=== PATIENT | male | born 1945 | race Hispanic/Latino ===

== ENCOUNTER 2017-11-05 00:17 | Inpatient (IN) | payer MEDICARE ==
[2017-11-05 00:33] LABS: Base Excess-Venous -2.3 mmol/L (-30.0-30.0); Bicarbonate (HCO3v) 28.5 mmol/L (1.0-85.0); CO2 Tension (PvCO2) 81.4 mmHg (41.0-51.0); Calcium, Ionized 1.45 mmol/L (1.12-1.32); Hemoglobin - Calc 12.8 g/dL (12.0-18.0); Lactate 8.02 mmol/L (0.50-2.20); O2 Tension (PvO2) 28.6 mmHg (35.0-45.0); Potassium 6.4 mmol/L (3.4-4.7); pH (Venous) 7.152 (7.35-7.45); vO2 Saturation-calc 36.1 % (0.0-100.0)
[2017-11-05] MEDS ORDERED: Sodium Bicarb 50 MEQ/50 ML Abboject 8.4% SYRINGE ONE (01:00)
[2017-11-05] MEDS ORDERED: EPINEPHrine 1 MG/10 ML Abboject SYRINGE ONE (01:00)
[2017-11-05] MEDS ORDERED: DOPamine/D5W 400 mg/250 ml PREMIX ONE (01:00)
[2017-11-05 01:04] LABS: #Basophils 0.1 thou/uL (0.0-0.2); #Monocytes 0.8 thou/uL (0.11-0.59); #Neutrophils 8.2 thou/uL (1.40-6.50); %Basophils 0.5 % (0.0-1.0); %Eosinophils 0.2 % (0.0-10.0); %Lymphocytes 30.5 % (21.0-51.0); %Neutrophils 62.8 % (42.0-75.0); Hemoglobin 12.2 g/dL (14.0-18.0); Mean Platelet Volume 7.7 fL (7.4-10.4); Platelet Count 219 thou/uL (130-400); RBC Distribution Width 12.3 % (11.5-14.5); Red Blood Cell (RBC) Count 3.69 mill/uL (4.70-6.10); White Blood Cell (WBC) Count 13.1 thou/uL (4.8-10.8)
[2017-11-05 01:10] LABS: INR-International Normal Ratio 1.3; Prothrombin Time 16.5 SEC (12.0-14.7)
[2017-11-05 01:23] LABS: ALT (SGPT) 19 U/L (8-55); AST (SGOT) 43 U/L (5-34); Albumin 2.8 g/dL (3.4-4.8); Alkaline Phosphatase 85 U/L (40-150); Anion Gap 30 mmol/L (10-20); BUN (Urea Nitrogen) 44 mg/dL (8.4-25.7); Bilirubin, Total 0.9 mg/dL (0.2-1.2); CK (CPK) 54 U/L (30-200); Calc. Creatinine Clearance 0 mL/min (70-130); Carbon Dioxide 19 mmol/L (23-31); Chloride 101 mmol/L (98-107); Estimated GFR-MDRD 57; Globulin 3.8 g/dL (2.4-3.5); Glucose 153 mg/dL (83-110); Magnesium 2.5 mg/dL (1.6-2.6); Protein, Total 6.6 g/dL (5.8-8.1); Sodium 143 mmol/L (136-145)
[2017-11-05 01:26] LABS: CKMB 1.5 ng/mL (0-6.6); Troponin I 0.012 ng/mL (< 0.028)
[2017-11-05 01:27] LABS: Calcium 13.1 mg/dL (7.8-10.44); Potassium 6.8 mmol/L (3.5-5.1)
[2017-11-05] MEDS ORDERED: Amiodarone In Dextrose 200 ML IVPB SCH (01:30)
[2017-11-05] MEDS ORDERED: Vancomycin HCl 500 MG in Sodium Chloride 0.9% 100 ML IVPB SCH (01:30)
[2017-11-05] MEDS ORDERED: Piperacillin/Tazobactam 4.5 GM in Sodium Chloride 0.9% 100 ML IVPB SCH (01:30)
[2017-11-05] MEDS ORDERED: Metoclopramide HCl 10 MG/2 ML VIAL ONE (01:58)
[2017-11-05] MEDS ORDERED: diphenhydrAMINE 50 MG/ML VIAL ONE (01:58)
[2017-11-05] MEDS ORDERED: Ketorolac Tromethamine 30 MG/ML VIAL ONE (01:58)
[2017-11-05] MEDS ORDERED: Propofol 1,000 MG/100 ML VIAL IV PRN ×2 (02:42→03:04)
[2017-11-05] MEDS ORDERED: fentaNYL Citrate/PF 2,000 MCG in Sodium Chloride 0.9% 60 ML IV SCH ×2 (02:42→03:04)
[2017-11-05] MEDS ORDERED: Lorazepam 2 MG/ML VIAL SLOW IVP PRN ×2 (02:42→03:04)
[2017-11-05] MEDS ORDERED: Fentanyl BOLUS 250 ML IVPB PRN ×2 (02:42→03:04)
[2017-11-05] MEDS ORDERED: Morphine 2 MG/ML SYRINGE SLOW IVP PRN ×2 (02:42→03:04)
[2017-11-05] MEDS ORDERED: DISCONTINUE PREVIOUS NARCOTIC PAIN MEDICATIONS AND BENZODIAZEPINES FS SCH ×2 (02:42→03:04)
[2017-11-05] MEDS ORDERED: DOPamine 400 MG/D5W 250 ML 250 ML IVPB SCH (02:45)
[2017-11-05] MEDS ORDERED: Vecuronium 10 MG VIAL IV PRN (02:45)
[2017-11-05] MEDS ORDERED: ALL FLUIDS SHOULD BE DEXTROSE FREE IF POSSIBLE FS SCH (02:45)
[2017-11-05] MEDS ORDERED: DO NOT USE PRE-EXISTING LYTE PROTOCOL FS SCH (02:45)
[2017-11-05] MEDS ORDERED: Ventilator Sedation Protocol 1 EACH FS SCH (02:58)
[2017-11-05] MEDS ORDERED: Sodium Chloride 0.9% 1,000 ML IV SCH (03:00)
[2017-11-05] MEDS ORDERED: Norepinephrine 8 MG/0.9% NS 250 ML IVPB SCH (03:00)
[2017-11-05] MEDS ORDERED: Vasopressin 40 UNIT, Admixture Fee 1 EACH in Sodium Chloride 0.9% 100 ML IV SCH (03:00)
[2017-11-05 03:02] LABS: Actual Bicarbonate (HCO3a) 22.7 mEq/L (22-26); Base Excess (BEa) -5.8 mEq/L (0 (+/-) 2.5); CO2 Tension 59.2 mmHg (35.0-45.0); Hematocrit-ABG 32.2 % (42.0-52.0); Hemoglobin (Hb) 11.5 g/dL (14.0-18.0); O2 Tension (PaO2) 315.4 mmHg (80.0-100.0)
[2017-11-05 03:03] LABS: Analyzer IN Cardio ER; Calcium, Ionized 1.4 mmol/L (1.12-1.30); Puncture Site LFA
[2017-11-05 03:24] VITALS: BMI 16.5
[2017-11-05 03:57] LABS: INR-International Normal Ratio 1.6; Prothrombin Time 19.7 SEC (12.0-14.7)
[2017-11-05 04:11] LABS: Lactic Acid 10.5 mmol/L (0.5-2.2)
[2017-11-05 04:13] LABS: ALT (SGPT) 114 U/L (8-55); AST (SGOT) 263 U/L (5-34); Albumin 2.3 g/dL (3.4-4.8); Alkaline Phosphatase 79 U/L (40-150); Anion Gap 23 mmol/L (10-20); BUN (Urea Nitrogen) 39 mg/dL (8.4-25.7); Bilirubin, Total 1.3 mg/dL (0.2-1.2); Calc. Creatinine Clearance 38 mL/min (70-130); Calcium 9.1 mg/dL (7.8-10.44); Carbon Dioxide 18 mmol/L (23-31); Chloride 110 mmol/L (98-107); Estimated GFR-MDRD 64; Glucose 196 mg/dL (83-110); Magnesium 1.7 mg/dL (1.6-2.6); Phosphorus 6.4 mg/dL (2.3-4.7); Protein, Total 5.3 g/dL (5.8-8.1); Sodium 147 mmol/L (136-145)
[2017-11-05 04:17] LABS: Troponin I 0.053 ng/mL (< 0.028)
[2017-11-05 04:20] LABS: Band 27 % (5-11); Burr Cells SLIGHT = 2-5 cells (100X) (0-1/hpf); Hemoglobin 11.5 g/dL (14.0-18.0); Lymphocytes 8 % (21-51); MDiff Complete? YES; Mean Corpuscular HGB CONC 31.9 g/dL (32.0-36.0); Mean Corpuscular Hemoglobin 32.5 pg (27.0-31.0); Metamyelocyte 4 % (0-0); Monocytes 1 % (0-10); Neutrophil 60 % (42-75); PLT Morphology Comment Appears Adequate; Platelet Count 176 thou/uL (130-400); RBC Distribution Width 12.4 % (11.5-14.5); Red Blood Cell (RBC) Count 3.53 mill/uL (4.70-6.10); White Blood Cell (WBC) Count 6.3 thou/uL (4.8-10.8)
--- NOTE | 2017-11-05 05:54 | PDOC.EVN ---
Event Note - Event Note Event Note: Spoke to patient's and sister at 05:35 on 11/05. I have informed them of patient's status and very poor prognosis. They desire to make patient DNR at this time. They understand his poor prognosis and have decided collectively that they do not want him to suffer any longer. They also desire to withdrawal care. Efforts will be made to withdrawal care at families request.
[2017-11-05 07:25] LABS: INR-International Normal Ratio 1.8; PTT 43.2 SEC (22.9-36.1); Prothrombin Time 21.4 SEC (12.0-14.7)
[2017-11-05 07:38] LABS: Anion Gap 26 mmol/L (10-20); BUN (Urea Nitrogen) 44 mg/dL (8.4-25.7); Calc. Creatinine Clearance 30 mL/min (70-130); Calcium 9.6 mg/dL (7.8-10.44); Carbon Dioxide 16 mmol/L (23-31); Chloride 109 mmol/L (98-107); Estimated GFR-MDRD 48; Glucose 91 mg/dL (83-110); Magnesium 1.9 mg/dL (1.6-2.6); Phosphorus 7.5 mg/dL (2.3-4.7); Potassium 5.5 mmol/L (3.5-5.1); Sodium 145 mmol/L (136-145)
[2017-11-05 07:44] LABS: Band 48 % (5-11); Hemoglobin 12.4 g/dL (14.0-18.0); Lymphocytes 8 % (21-51); MDiff Complete? YES; Mean Corpuscular HGB CONC 31.9 g/dL (32.0-36.0); Mean Corpuscular Hemoglobin 32.9 pg (27.0-31.0); Mean Platelet Volume 7.1 fL (7.4-10.4); Metamyelocyte 1 % (0-0); Monocytes 5 % (0-10); Neutrophil 38 % (42-75); Platelet Count 232 thou/uL (130-400); RBC Distribution Width 12.5 % (11.5-14.5); Red Blood Cell (RBC) Count 3.76 mill/uL (4.70-6.10)
[2017-11-05 07:53] LABS: CKMB 40.4 ng/mL (0-6.6); Lactic Acid Greater than 13.4 mmol/L (0.5-2.2)
[2017-11-05 08:09] LABS: Actual Bicarbonate (HCO3a) 17.9 mEq/L (22-26); Base Excess (BEa) -11.3 mEq/L (0 (+/-) 2.5); CO2 Tension 58.1 mmHg (35.0-45.0); O2 Tension (PaO2) 61.3 mmHg (80.0-100.0); pH, Arterial 7.11 (7.35-7.45)
[2017-11-05 08:10] LABS: ALV-art Gradient 222.575 (0-20); Hematocrit-ABG 26.5 % (42.0-52.0); Hemoglobin (Hb) 9.3 g/dL (14.0-18.0); Puncture Site LRA
[2017-11-05] MEDS: Norepinephrine 8 MG/0.9% NS 250 ML IVPB SCH ×3 (08:12→23:42)
[2017-11-05] MEDS: Sodium Bicarbonate 150 MEQ, Admixture Fee 1 EACH in Dextrose 5% in Water 1,000 ML IV SCH ×2 (08:41→14:56)
[2017-11-05] MEDS ORDERED: FLU VACC TS2017-18 (>65YR) 0.5 ML SYRINGE IM ONE (09:00)
[2017-11-05] MEDS ORDERED: Prevnar 13-Val Conj/PF 0.5 ML SYRINGE IM ONE (09:00)
--- NOTE | 2017-11-05 09:32 | RAD ---
CHEST 1 VIEW: HISTORY: Dyspnea. COMPARISON: 10/05/17. FINDINGS: Cardiac silhouette is magnified and predominantly obscured by coarse interstitial opacity throughout each lung. Mediastinum is midline. The tip of an endotracheal catheter overlies the thoracic inlet. Nasogastric tube overlies the midline but only descends to the level of T10. Small left pneumothor ax is apparent. There is gaseous distention of the stomach. monitoring manager leads overlie the chest . IMPRESSION: 1. Small left pneumothorax. 2. Nasogastric tube descends only to the lower esophagus. There is gaseous distention of the stomac h. Please consider advancing the tube 15 cm for better positioning. 3. Coarsened interstitial markings throughout the lungs are otherwise stable compared to the prior e xam. Findings were called to the patient's nurse, David, at 0815 hours. CODE CR POS: RAYMON
[2017-11-05] MEDS: Refresh Lacri-lube Opth Oint 7 GM TUBE EA EYE PRN ×2 (12:35→17:30)
--- NOTE | 2017-11-05 16:45 | HP-2 ---
CODE STATUS: FULL. PRIMARY CARE PHYSICIAN: [facility], Dr. David Gamble. ATTENDING PHYSICIAN: Dr. Sheppard. RESIDENT PHYSICIAN: Dr. Carie Antonio. SPECIALIST: Dr. Prado, Pulmonology. CHIEF COMPLAINT: Cardiac arrest. HISTORY OF PRESENT ILLNESS: This is a 71-year-old male with end-stage pulmonary fibrosis that presented in cardiac arrest. He was doing fine earlier today per , but got up to go to the restroom and just suddenly went down. started CPR. When EMS arrived, the patient was in asystole. Epinephrine was given and the patient went into pulseless V-tach, so shock was administered. The patient had pulse upon arriving to ED, he was intubated on arrival and a central line was placed. The patient coded for a second time. Return of spontaneous circulation was achieved. EKG did show AFib with RVR and possible anterior ischemia. Cardiology was consulted and presumes this to be metabolic and thus did not see any need for intervention at this time. Pulmonology was also consulted in the ED and assistive ventilator changes and pressure support. The patient was started on vancomycin and Zosyn for broad- spectrum coverage of possible pneumonia or other infectious source. The patient was given amiodarone 150 mg for AFib. He was also given Zosyn 4.5 mg, vancomycin 50 mg/kg, Levophed, vasopressin and dopamine. PAST MEDICAL HISTORY: 1. 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 2. Diabetes mellitus type 2. 3. Hypertension. 4. Tobacco abuse. 5. COPD. 6. Normocytic anemia. 7. Dysphagia. PAST SURGICAL HISTORY: None. ALLERGIES: No known drug allergies. MEDICATIONS: 1. Amlodipine 5 mg oral daily. 2. Losartan 50 mg oral daily. 3. Aspirin 81 mg oral daily. 4. Albuterol sulfate 0.083 inhalation nebulizer every 6 hours. 5. Glyburide 2.5 mg oral tablet daily. 6. Metformin 1000 b.i.d. 7. Prednisone 20 in the a.m. FAMILY HISTORY: Diabetes mellitus type 2. SOCIAL HISTORY: Per old records, patient smoked a half a pack per day for 30 years and quit 25 years ago. The patient did not smoke or drink per past records. He does have a common malaise, who was present with the patient when he arrived to the Emergency Department. REVIEW OF SYSTEMS: Unable to obtain as patient is unresponsive. PHYSICAL EXAMINATION: VITAL SIGNS: Blood pressure 74/54, pulse 115, respiratory rate 20, T-max 95.9 and pulse ox 100% on ventilator. Current weight 36.8 kilograms. GENERAL: The patient is sedated and on ventilation support. Appears cachectic. EYES: Pupils are fixed and dilated. CARDIOVASCULAR: The patient had a regular rate and rhythm on exam and no murmurs, although assessment was difficult. His heart sounds seem distant. Radial pulses 2+. RESPIRATORY: The patient was on ventilator support. There were diffuse crackles, rales throughout. SKIN: The patient felt cold to touch. ABDOMEN: Soft and did not appear to be distended. EXTREMITIES: Extremities were pale, did not appear to be any edema. MUSCULOSKELETAL: The patient is cachectic appearing. Poor tone throughout. NEUROLOGIC: The patient is sedated, unable to assess. LABORATORY DATA: 1. CBC reveals a white blood cell count of 13.1, hemoglobin 12.2, hematocrit 38.1 and platelets 219. 2. Sodium 146, potassium 6.4, chloride 103, bicarbonate 19, BUN 44, creatinine 1.86, glucose 144, calcium 13.1, total protein 6.6, albumin 2.8, AST 43, ALT 19 , alkaline phosphatase 85 and total bilirubin 0.9. 3. Lactic acid 13.8. 4. PT 16.5, INR 1.3. 5. Mag 2.5. 6. Anion gap 30. 7. CK 54. 8. CK-MB 1.5, troponin 0.012. 9. TSH 2.8183. 10. ABG shows a pH of 7.12, CO2 of 81.4 and O2 of 28.6. 11. Chest x-ray: Chest x-ray is consistent with severe pulmonary fibrosis. ASSESSMENT AND PLAN: This is a 71-year-old male with end-stage pulmonary fibrosis and presents in cardiac arrest. 1. Cardiac arrest status post return of spontaneous circulation x2. The patient was admitted to ICU. We will continue pressure support with Levophed, vasopressin and dopamine. Continue ventilator support to assist patient breathing. Additionally, we will continue broad-spectrum antibiotics to cover for infectious causes. Family was notified about the patient's status and they came up to the ICU and a discussion was had. They decided to make patient DNR. Also, they have made a decision to withdraw care, but would like to wait on other family to come to town to do so. The patient was placed on CCU sedation protocol. It was made very clear that prognosis is poor. The patient is satting in the 60s-70s on ventilator and his blood pressure is staying within the 50-60 range systolic with MAPS in the 40s. 2. Hypotension secondary to cardiac arrest. The patient on pressors x3, all of which are at max. We will continue pressure support. MAPS are in the 40s and 50s. 3. Respiratory failure on ventilator support/critically ill. Continue ventilator support. Pulmonology consulted for further recommendations. 4. Severe end-stage chronic obstructive pulmonary fibrosis. This is likely contributed to cardiac arrest and treatment at this time. The patient is on ventilator support, being oxygenated as much as possible. 5. Chronic obstructive pulmonary disease. 6. Diabetes mellitus type 2. 7. Hypertension, currently hypotensive on ventilator support. 8. Atrial fibrillation. Cardiology was consulted and presumed cardiac abnormalities to be metabolic. No intervention from a cardiac standpoint. 9. Anemia, which is stable. DISPOSITION AND LENGTH OF HOSPITAL STAY: 3 days. Symptomatic medication will be provided. History and physical exam as well as management discussed with Dr. Sheppard. SHAVONNE
[2017-11-05 17:17] LABS: Bilirubin Small (Negative); Blood, Urine Large (Negative); Clarity TURBID (Clear); Glucose, Urine (Dipstick) 100 mg/dL (Negative); Leukocyte Negative (Negative); Nitrite Negative (Negative); Protein, Urine (Dipstick) 300 mg/dL (Neg-Trace); Specific Gravity, Urine 1.024 (1.002-1.036); pH, Urine 5.5 (5.0-9.0)
[2017-11-05 17:23] LABS: Squamous Epithelial 21-50 HPF (0-3)
[2017-11-05 17:25] LABS: Pathc Cast-AUWi Flag 14.28 (0-2.49); Yeast-AUWi Flag 586.5 (0-25.0)
[2017-11-05 17:34] LABS: Bacteria/HPF 4+ HPF (None Seen); Hyaline Casts/LPF NONE SEEN LPF (0-3 Hyaline); Manual Microscopic Reviewed? No Path Casts Seen; Renal Epithelial None Seen HPF (0-3); Transitional Epithelial 0-3 HPF (0-3); Yeast-All Forms 1+ HPF (None Seen)
--- NOTE | 2017-11-05 19:07 | CON ---
DATE OF CONSULTATION: 11/05/2017 PULMONARY CONSULTATION Mr. Gallo is a 71-year-old male who arrested out of hospital. He was fine up until the moment of thi s arrest. He had no complaints leading up to that. EMS was summoned. He was shocked out of ventricular tachycardia, was intubated, arrested again in th e emergency department. He was resuscitated and has persistent hypotension. Family has elected to consider current care, but not withdraw care at this time. We also agreed to a DO NOT RESUSCITATE status. PAST MEDICAL HISTORY: Remarkable for, 1. Diabetes. 2. Hypertension. 3. History of obstructive lung disease. 4. History of pulmonary fibrosis. Family cannot tell me who had made that diagnosis, but apparently has a recent diagnosis. He has not smoked for almost 30 years. He is not a daily drinker. He does not use drugs. Prior to admission, he was on amlodipine, losartan, aspirin, albuterol, glyburide, metformin, and prednisone. REVIEW OF SYSTEMS: Otherwise not obtainable. PHYSICAL EXAMINATION: VITAL SIGNS: Blood pressure 89/54, heart rate is 123, respiratory rate is 26. HEENT: Pupils are sluggish. His eyes are open. He has corneals. He has respiratory effort. He johnson s weak gag. NECK: Supple. LUNGS: Clear and distant. HEART: Regular rhythm. S1 and S2 are normal. ABDOMEN: Soft. EXTREMITIES: Without asymmetry. LABORATORY AND X-RAY FINDINGS: Chest radiograph shows diffuse increased interstitial markings, tiny left pneumothorax. White count 10.9, hemoglobin 12.4, platelets 232,000. Sodium 145, potassium 5.5, chloride 109, bicarbonate 16, BUN 44, creatinine 1.44. Lactate is up to 1 3. Blood gas this morning 7.11, CO2 is 58, pO2 is 61. Only one troponin was done, that was at 2:00 this morning. CK-MB was 40. IMPRESSION: 1. Ventricular tachycardia arrest outside of the hospital. 2. Severe anoxic injury. 3. Underlying interstitial lung disease of unclear etiology or duration. 4. Metabolic acidosis after his arrest. He certainly is set up with diabetes for having ischemic francoise wel, but not a candidate for any further workup. He has acid base disorders. He is empirically star isamar on antimicrobial therapy. I met with family at length and answered all of their questions. I th ink their care goals are appropriate. They are trying to get a sister into town to see him, she is s upposedly landing about 10:00 in [place]. They want continued care, but they do not want him resusci tated again, which I feel is appropriate. Critical care time 35 minutes.
[2017-11-05] MEDS: Acetaminophen 1,000 MG in Premix Bag 1 BAG IVPB PRN (21:22)
[2017-11-06] MEDS: Sodium Bicarbonate 150 MEQ, Admixture Fee 1 EACH in Dextrose 5% in Water 1,000 ML IV SCH (00:16)
[2017-11-06] MEDS ORDERED: Scopolamine 1.5 mg/72 hour Patch TD SCH (02:00)
[2017-11-06] MEDS: Acetaminophen 1,000 MG in Premix Bag 1 BAG IVPB PRN (03:04)
--- NOTE | 2017-11-06 06:17 | PDOC.FM ---
- Subjective Subjective: Pt intubated. No sedation. Non-responsive. - Objective MAR Reviewed: Yes Vital Signs & Weight: Vital Signs (12 hours) Temp Pulse Resp Pulse Ox 11/06/17 05:00 99.2 F 11/06/17 04:00 103.1 F H 30 H 11/06/17 02:44 117 H 11/06/17 02:00 33 H 11/06/17 00:00 102.5 F H 30 H 11/05/17 22:12 122 H 11/05/17 22:00 102.5 F H 35 H 11/05/17 20:00 103.5 F H 123 H 35 H 91 L 11/05/17 18:54 118 H Weight Weight 46.3 kg Most Recent Monitor Data Heart Rate from ECG 113 NIBP 130/68 NIBP BP-Mean 97 Respiration from ECG 28 SpO2 96 I&O: 11/04/17 11/05/17 11/06/17 06:59 06:59 06:59 Intake Total 682 5186.8 Output Total 20 Balance 682 5166.8 Result Diagrams: 11/05/17 07:13 11/05/17 07:13 <Anni Ball - Last Filed: 11/06/17 06:15> - Objective Vital Signs & Weight: Vital Signs (12 hours) Temp Pulse Resp BP Pulse Ox 11/06/17 08:00 98.8 F 106 H 37 H 94 L 11/06/17 07:00 98.8 F 11/06/17 06:34 103 H 123/70 11/06/17 06:00 30 H 11/06/17 05:00 99.2 F 11/06/17 04:00 103.1 F H 30 H 11/06/17 02:44 117 H 11/06/17 02:00 33 H 11/06/17 00:00 102.5 F H 30 H 11/05/17 22:12 122 H Weight Weight 102 lb 1.184 oz Most Recent Monitor Data Heart Rate from ECG 105 NIBP 115/62 NIBP BP-Mean 79 Respiration from ECG 33 SpO2 95 I&O: 11/05/1718 11/07/17 06:59 06:59 06:59 Intake Total 682 5186.8 Output Total 30 10 Balance 682 5156.8 -10 Result Diagrams: 11/05/17 07:13 11/05/17 07:13 <Jim Sheppard Eric - Last Filed: 11/06/17 10:04> Phys Exam - Physical Examination Does not appear to be in any discomfort. Very thin, fraile, cachectic ET and OG tubes in place. Pupils pinpoint bilaterally + wheezing. Cardiovascular: RRR Gastrointestinal: soft Musculoskeletal: no edema Modeling on feet noted. Decerebrate posturing of UE. Deviation from normal: In coma Deviation from normal: Cool extremities. <Anni Ball - Last Filed: 11/06/17 06:15> Dx/Plan (1) Anoxic brain injury Status: Acute Plan: S/p cardiac arrest with multiple rounds of CPR. Unknown amount of time that patient was without circulation. Prognosis very poor (2) Acute respiratory failure with hypoxia and hypercapnia Code(s): J96.01 - ACUTE RESPIRATORY FAILURE WITH HYPOXIA; J96.02 - ACUTE RESPIRATORY FAILURE WITH HYPERCAPNIA Status: Acute Plan: Patient may have a spontaneous breath occassionally, that is weak and not compatable with life off the ventilator. Poor prognosis discussed in detail yesterday with family, and they are waiting for 1 more family member to arrive before withdrawing care. Will continue with current treatment. Prior to arrest, patient had poor long-term prognosis due to the extensive pulmonary fibrosis (3) Cardiac arrest Code(s): I46.9 - CARDIAC ARREST, CAUSE UNSPECIFIED Status: Acute Plan: S/p multiple rounds of ACLS with ROSC. Continue 3 pressor's and Bicarb drip to assist with the acidosis. (4) Pulmonary fibrosis Code(s): J84.10 - PULMONARY FIBROSIS, UNSPECIFIED Status: Acute Plan: Chronic, however contributing to patient's poor prognosis s/p cardiac arrest with ROSC. (5) Lactic acidosis Code(s): E87.2 - ACIDOSIS Status: Acute Plan: Continue Bicarb drip. (6) Hyperkalemia Code(s): E87.5 - HYPERKALEMIA Status: Acute (7) Hypotension Status: Acute Plan: Currently on Vasopresin, Levophed, Dopamine. <Anni Ball - Last Filed: 11/06/17 06:15> Attending Addendum - Attending Addendum I personally evaluated the patient and discussed the management with Dr. Quesada I agree with the History, Examination, Assessment and Plan documented above. Continue ventilator and pressure support. Continue to discuss DNR status with the family. <Jim Sheppard - Last Filed: 11/06/17 10:04>
[2017-11-06] MEDS: Norepinephrine 8 MG/0.9% NS 250 ML IVPB SCH (06:36)
[2017-11-06 07:18] LABS: ALV-art Gradient 224.925 (0-20); Actual Bicarbonate (HCO3a) 34.9 mEq/L (22-26); Analyzer IN Cardio OR; Base Excess (BEa) 9.4 mEq/L (0 (+/-) 2.5); CO2 Tension 53.5 mmHg (35.0-45.0); Hematocrit-ABG 27.5 % (42.0-52.0); Hemoglobin (Hb) 9.6 g/dL (14.0-18.0); O2 Tension (PaO2) 64.7 mmHg (80.0-100.0); Puncture Site LBA; pH, Arterial 7.43 (7.35-7.45)
[2017-11-06 07:19] LABS: Calcium, Ionized 0.9 mmol/L (1.12-1.30)
[2017-11-06 08:17] VITALS: TEMP 98.8
[2017-11-06 10:39] VITALS: BP 92/60
--- NOTE | 2017-11-06 12:20 | PRG ---
DATE OF SERVICE: 11/06/2017 SUBJECTIVE: Mr. Gallo is worse neurologically. He has no gag. He has no corneals. He has no doll' s eyes. He does not respond to a sternal rub. He does have respiratory effort. OBJECTIVE: VITAL SIGNS: He remains on 3 pressors. His current blood pressure is 93/60. His heart rate is 106, respiratory rate is 28 and oximetry is 95%. LUNGS: Clear anteriorly. HEART: Regular rhythm. ABDOMEN: Soft. LABORATORY DATA: There is no new lab today except for blood gases of pH 7.43, CO2 of 53 and pO2 of 6 4. Tidal volumes 400, respiratory rate is 28, FiO2 is 50%, pressure support of 10 and 5 of PEEP. IMPRESSION: 1. Respiratory failure after cardiac arrest. 2. Severe anoxic brain injury declining neurologically. Family is comfortable with the idea of with drawal of support. This will be done when rest of the family arrives. The body will be released to the home after that. Pressors will be stopped when he is extubated.
--- NOTE | 2017-11-06 19:13 | DS-2 ---
ATTENDING: Dr. Sheppard RESIDENT: Anni Ball D.O DATE OF ADMISSION: 11/05/2017 DATE OF : 11/06/2017 TIME OF : 14:35 CAUSE OF : 1. Severe End-Stage Pulmonary fibrosis. 2. Cardiac arrest. SECONDARY DIAGNOSES: 1. Acute severe anoxic brain injury. 2. Acute respiratory failure. 3. Cardiogenic shock. 4. Diabetes mellitus type 2. 5. Chronic obstructive pulmonary disease. HOSPITAL COURSE: This is a 71-year-old male with end-stage pulmonary fibrosis that presented to the emergency room in cardiac arrest status post ROSC. He was found down by his and his had started CPR in the field. When EMS arrived, the patient was in systole for an unknown amount of time. He was given multiple rounds of ACLS in the field. Upon arriving to the emergency room , he was intubated and a central line was placed at that time. The patient coded multiple times in the emergency room and ACLS was performed with return of spontaneous circulation. The EKG did show atrial fibrillation with RVR, possible anterior ischemia. So Cardiology was consulted from the emergency room, the arrhythmia was presumed to be secondary to his metabolic causes and therefore an intervention was not felt necessary at this time. Pulmonology was consulted from the emergency room to assist in ventilator changes and pressure support. The patient was started on vancomycin and Zosyn for broad spectrum coverage of possible infectious etiology. The patient was given amiodarone as well as started on Levophed, vasopressin and dopamine as his systolic blood pressure was in the 50s. The patient was transferred to the ICU and was continued on multiple pressure support medications and continued on the ventilator setting. The patient was noted to be in severe acidosis with a pH of 7.11 on ABG, pCO2 of 58.1, pO2 of 61.3. His lactic acid continued to trend up even after fluids and the bicarb drip going as well as ventilator setting changes, with the initial lactate of 13.0 and subsequent one initially went down to 10.5; however, within a few hours it went back up to 13.4 despite everything we were doing. His prognosis was extremely grave especially with his initial diagnosis, prior to this hospitalization of end-stage chronic pulmonary fibrosis. He was noted only to have occasional gasp of breathing; however, this was not compatible with life. He was in a coma, with absent coughing, gag, and corneal reflexes. A family discussion was held with his , sister and son and they were all in agreeance to change the patient's code status to DO NOT RESUSCITATE. The family had requested that we tried to do everything we could do overnight to keep the patient alive overnight with the exception if his heart was to stop , they would not want us to resuscitate him at that time. Therefore again a family discussion was held and once all family that was coming had arrived, the family decided to withdraw care and the patient passed comfortably on 2017. The care of this patient was discussed with Dr. Sheppard. SHAVONNE
--- NOTE | 2017-12-03 14:22 | EKG ---
Test Reason : Blood Pressure : / mmHG Vent. Rate : 147 BPM Atrial Rate : 159 BPM P-R Int : 000 ms QRS Dur : 142 ms QT Int : 310 ms P-R-T Axes : 000 102 -63 degrees QTc Int : 485 ms Atrial fibrillation with rapid ventricular response with premature ventricular or aberrantly conducte d complexes Right bundle branch block T wave abnormality, consider inferior ischemia or digitalis effect Abnormal ECG Confirmed by CARINA Ruff, BROOKLYN ([id number]), medical transcription editor FAMILIA JUAREZ ([id number]) on 12/03/2017 2:21:19 PM Referred By: Confirmed By:BROOKLYN LIM M.D.
--- NOTE | 2017-12-03 14:22 | EKG ---
Test Reason : Blood Pressure : / mmHG Vent. Rate : 115 BPM Atrial Rate : 115 BPM P-R Int : 176 ms QRS Dur : 108 ms QT Int : 366 ms P-R-T Axes : 056 076 -46 degrees QTc Int : 506 ms Sinus tachycardia Low voltage QRS Abnormal ECG Confirmed by BROOKLYN LIM M.D. ([id number]), rewrite editor FAMILIA JUAREZ ([id number]) on 12/03/2017 2:21:19 PM Referred By: Confirmed By:BROOKLYN LIM M.D.
--- NOTE | 2017-12-06 14:06 | EKG ---
Test Reason : Blood Pressure : / mmHG Vent. Rate : 102 BPM Atrial Rate : 125 BPM P-R Int : 000 ms QRS Dur : 086 ms QT Int : 326 ms P-R-T Axes : 000 024 009 degrees QTc Int : 424 ms Atrial fibrillation with rapid ventricular response Nonspecific ST abnormality Abnormal ECG Confirmed by CARINA Ruff, BROOKLYN ([id number]), assistant film editor FAMILIA JUAREZ ([id number]) on 12/06/2017 2:06:27 PM Referred By: Confirmed By:BROOKLYN LIM M.D.
== END 2017-11-06 14:35 | disposition expired | DRG 208 ==
LOC: ERS 00:17 → EDBD 00:17 → CCU 01:20
PROVIDERS: ADMIT Family Medicine; ATTEND Family Medicine
PROC: 0BH17EZ Insertion of Endotracheal Airway into Trachea, Via Natural or Artificial Opening (ICD-10-PCS; principal; 2017-11-05)
PROC: 5A1945Z Respiratory Ventilation, 24-96 Consecutive Hours (ICD-10-PCS; 2017-11-05)
DX: J96.01 Acute respiratory failure with hypoxia (principal); R57.0 Cardiogenic shock; G93.1 Anoxic brain damage, not elsewhere classified; J84.112 Idiopathic pulmonary fibrosis; E87.2 Acidosis; I95.9 Hypotension, unspecified; E87.5 Hyperkalemia; I48.91 Unspecified atrial fibrillation; E11.9 Type 2 diabetes mellitus without complications; J96.02 Acute respiratory failure with hypercapnia; J44.9 Chronic obstructive pulmonary disease, unspecified; Z66 Do not resuscitate; I10 Essential (primary) hypertension; Z87.891 Personal history of nicotine dependence; Z79.84 Long term (current) use of oral hypoglycemic drugs; Z79.82 Long term (current) use of aspirin; Z79.52 Long term (current) use of systemic steroids; Z79.899 Other long term (current) drug therapy
CPT/HCPCS: 31500; 36416; 36556; 51702; 71045; 80053; 81001; 82330; 82435; 82553; 82565; 82803; 82805; 82947; 83605; 83735; 83880; 84100; 84132; 84295; 84443; 84484; 85014; 85025; 85610; 85730; 86850; 86900; 86901; 87040; 90471; 90670; 90682; 92950; 93005; 94002; 94003; 96365; 96366; 96367; 96368; 96375; 96376; 99292; A4216; G0008; G0009; J0131; J0171; J0282; J1200; J1265; J1885; J2543; J2704; J2765; J3370; J7050; J7070; Q2036